=== PATIENT | female | born 1965 | race Caucasian/White ===

== ENCOUNTER → 2017-05-28 | Outpatient (CLI) | payer BC ==
--- NOTE | 2017-05-29 13:14 | RAD ---
EXAM: MAMMO JOSLYN SCREENING BILATERAL HISTORY: Routine Screening. History of surgery to the right breast status post lumpectomy. COMPARISON: 04/26/2016 Standard mammographic views are obtained of the bilateral breasts. Additionally three-dimensional joslyn synthesis images obtained. FINDINGS: The breast parenchyma shows scattered fibroglandular densities. Breast parenchyma level II. Repeat demonstration of architectural distortion and focal asymmetry of right breast in this patient with history of surgery to the region. Skin thickening of the right breast is identified and appears increased from prior. No definite new left breast mass. IMPRESSION: There is skin thickening identified of the right breast which appears increased from prior. Given the presence of this finding would return for a diagnostic mammogram and ultrasound of the right breast to further evaluate. BI-RADS CATEGORY: 0 NEED ADD'L IMAGE/PRIOR MAMMO RECOMMENDED FOLLOW-UP: ADD ADDITIONAL IMAGING PQRS compliance statement: Patient information was entered into a reminder system with a target due date for the next mammogram. Mammography is a sensitive method for finding small breast cancers, but it does not detect them all and is not a substitute for careful clinical examination. A negative mammogram does not negate a clinically suspicious finding and should not result in delay in biopsying a clinically suspicious abnormality. "Our facility is accredited by the [employer] Mammography [employer]."
== END | disposition home or self-care (01) ==
LOC: KCIC MAMMO 12:20
PROVIDERS: ATTEND Family Medicine
DX: Z12.31 Encounter for screening mammogram for malignant neoplasm of breast (principal)
CPT/HCPCS: 77063; G0202; 77067

== ENCOUNTER → 2017-06-11 | Outpatient (CLI) | payer BC ==
--- NOTE | 2017-06-11 16:02 | RAD ---
DATE: 06/11/2017 EXAM: BREAST RIGHT, DIGITAL DIAGNOSTIC RT HISTORY: History of right breast malignancy status post radiation therapy several years prior. COMPARISON: Screening mammogram 05/28/2017, 04/26/2016, February 01, 2016 FINDINGS: Right breast mammogram: Digital 2-D full field ML view and spot compression CC and MLO views of the right breast. Stable probable postoperative scarring in the 12:00 position right breast posterior depth with associated benign coarse calcifications. There is persistent skin thickening of the lower inner right breast with no underlying nipple retraction or mass. Right breast ultrasound: Right breast ultrasound demonstrates scarring and fat necrosis at the lumpectomy site at the 12:00 position 6 cm from the nipple. There is no suspicious focal mass subjacent to the breast skin thickening. IMPRESSION: 1. New lower inner right breast skin thickening with no associated underlying mass. BI-RADS 4, suspicious. Clinical correlation and skin biopsy is recommended. Results and recommendations were discussed with Dr. Deloris Burden by telephone at 12:25 PM 06/11/[address] Boaz Cabello. 2. Stable right breast 12:00 position lumpectomy changes. BI-RADS CATEGORY: 4 SUSPICIOUS ABNORMALITY- BIOPSY SHOULD BE CONSIDERED RECOMMENDED FOLLOW-UP: BIO BIOPSY RECOMMENDED PQRS compliance statement: Patient information was entered into a reminder system with a target due date for the next mammogram. Mammography is a sensitive method for finding small breast cancers, but it does not detect them all and is not a substitute for careful clinical examination. A negative mammogram does not negate a clinically suspicious finding and should not result in delay in biopsying a clinically suspicious abnormality. "Our facility is accredited by the [employer] Mammography [employer]."
== END | disposition home or self-care (01) ==
LOC: KCIC MAMMO 11:02
PROVIDERS: ATTEND Family Medicine
DX: R92.8 Other abnormal and inconclusive findings on diagnostic imaging of breast (principal)
CPT/HCPCS: 76641; G0206; 77065

== ENCOUNTER → 2018-06-02 | Outpatient (CLI) | payer BC | END | disposition home or self-care (01) | LOC: KCIC MAMMO 09:49 | DX: Z12.31 Encounter for screening mammogram for malignant neoplasm of breast (principal) | CPT/HCPCS: 77063; 77067 ==

== ENCOUNTER → 2019-06-08 | Outpatient (CLI) | payer BC ==
--- NOTE | 2019-06-08 11:46 | KCIC ---
Bilateral digital screening mammograms with 3-D tomosynthesis: Reason for examination: Routine screening. History of right breast cancer with lumpectomy and radiation therapy in 2011. Comparison is made to previous studies dated 06/02/2018 and 06/11/2017. Bilateral mammograms in CC and oblique projections were obtained with 2-D imaging and 3-D tomosynthesis imaging on a Siemens Inspiration unit and reviewed on the workstation. Interpretation was made with the benefit of CAD. The skin and nipples show no abnormalities. No abnormal axillary lymph nodes are seen. The breast parenchyma shows scattered fatty and fibroglandular density. (Breast density: Category B.) There are postop changes in the right breast with some calcification at the lumpectomy site. There also continues to be a small circumscribed nodule present in the 6:00 position anteriorly in the left breast measuring approximately 9 mm in greatest dimension. There are no new dominant masses, suspicious calcifications or architectural distortion. Impression: No evidence of malignancy. Recommend routine screening. BI-RAD Category 2: Benign. "Our facility is accredited by the [employer] Mammography [employer]." This patient's information has been entered into a reminder system for the patient to be notified with the results of her examination and a target date for the next mammogram. Electronically signed by: Rina Britt MD (06/08/2019 11:44 AM) [id number]
== END | disposition home or self-care (01) ==
LOC: KCIC MAMMO 10:12
PROVIDERS: ATTEND Family Medicine
DX: Z12.31 Encounter for screening mammogram for malignant neoplasm of breast (principal); N63.24 Unspecified lump in the left breast, lower inner quadrant; N64.89 Other specified disorders of breast; Z85.3 Personal history of malignant neoplasm of breast
CPT/HCPCS: 77063; 77067